=== PATIENT | female | born 1955 | race Caucasian/White ===

== ENCOUNTER 2022-08-16 18:15 | Emergency (ER) | payer MEDICARE ==
[~2022-08-16] VITALS: Ht 162.6 cm; Wt 75.0 kg
[2022-08-16] MEDS ORDERED: CLINDAMYCIN 600MG IV 50 ML IV ONE (19:15)
[2022-08-16 20:18] LABS: Basophils # (auto) 0.1 10 ^3/uL (0-0.2); Basophils % (auto) 1.3 % (0.0-2.0); Eosinophils # (auto) 0.3 10 ^3/uL (0-0.8); Eosinophils % (auto) 5.2 % (0.0-7.0); Hematocrit 42.5 % (36.0-46.0); Hemoglobin 14.5 g/dL (12.2-16.2); Lymphocytes # (auto) 1.5 10 ^3/uL (0.4-5.4); Mean Corpuscular Volume 91.2 fL (80.0-100.0); Monocytes # (auto) 0.5 10 ^3/uL (0-1.3); Monocytes % (auto) 8.4 % (0.0-12.0); Neutrophils # (auto) 3.3 10 ^3/uL (1.6-8.6); Neutrophils % (auto) 58.1 % (37.0-80.0); Nucleated Red Blood Cells % 0.1 %; Red Blood Cells 4.65 10^6/uL (4.0-5.20); Red Cell Distribution Width 13.1 % (11.8-14.3); White Blood Cell 5.7 10^3/uL (4.4-10.8)
[2022-08-16 20:32] LABS: Albumin 3.8 g/dL (3.4-5.0); Calcium 9.3 mg/dL (8.5-10.1); Potassium 3.8 mmol/L (3.5-5.1)
[2022-08-16 20:35] LABS: BUN/Creatinine Ratio 13.6; Bilirubin, Total 0.5 mg/dL (0.2-1.0); Total Protein 8.2 g/dL (6.4-8.2)
[2022-08-16] MEDS ORDERED: DOXY-286 PO (22:45)
[2022-08-16] MEDS ORDERED: CLINDAMYCIN HCL 150 MG CAP PO ONE (22:45)
[2022-08-16] MEDS ORDERED: CLIN300C8 PO (22:45)
[2022-08-16 23:18] VITALS: BP 138/96
== END 2022-08-16 23:27 | disposition home or self-care (01) ==
LOC: ER 18:25
DX: S60.410A Abrasion of right index finger, initial encounter (principal); L03.113 Cellulitis of right upper limb; R22.31 Localized swelling, mass and lump, right upper limb; Z88.0 Allergy status to penicillin; Z88.2 Allergy status to sulfonamides; K21.9 Gastro-esophageal reflux disease without esophagitis; Z98.890 Other specified postprocedural states
CPT/HCPCS: 36415; 73130; 80053; 83605; 85025; 87040